=== PATIENT | male | born 1965 | race Caucasian/White ===

== ENCOUNTER 2022-09-18 10:28 | Emergency (ER) | payer OTHER, MEDICAID ==
[~2022-09-18] VITALS: Ht 167.6 cm; Wt 74.8 kg
[2022-09-18 10:31] VITALS: BP_SYST 140
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
--- NOTE | 2022-09-18 11:05 | NUR ---
Dr. Warren at bedside to see patient. Plan to place patient on hold.
--- NOTE | 2022-09-18 11:34 | NUR ---
Bao santos in [facility] - 09/18/22 at 1135 by SDEDTBC COVID AND INFLUENZA SWABS COLLECTED AND SENT TO LAB.
--- NOTE | 2022-09-18 11:35 | NUR ---
COVID AND MRSA SWABS COLLECTED AND SENT TO LAB.
[2022-09-18 11:38] LABS: BASOPHILS % (AUTO) 0.4 % (0.0-2.0); EOSINOPHILS # (AUTO) 0.2 K/uL (0.0-0.4); EOSINOPHILS % (AUTO) 2.9 % (0.0-4.0); HEMATOCRIT 51.5 % (36-54); HEMOGLOBIN 17.3 g/dL (14.0-18.0); LYMPHOCYTES # (AUTO) 1.3 K/uL (1.0-5.5); LYMPHOCYTES % (AUTO) 20.9 % (20.5-51.5); MEAN CORPUSCULAR HEMOGLOBIN 32 pg (27-31); MEAN CORPUSCULAR HGB CONC 34 % (32-36); MEAN CORPUSCULAR VOLUME 95 fL (79.0-98.0); MONOCYTES # (AUTO) 0.5 K/uL (0.0-1.0); MONOCYTES % (AUTO) 8.8 % (1.7-9.3); NEUTROPHILS # (AUTO) 4.1 K/uL (1.8-7.7); RED BLOOD CELL COUNT(AUTO) 5.41 MIL/uL (4.2-6.2); RED CELL DISTRIBUTION WIDTH 13.6 % (9.0-15.0); WHITE BLOOD COUNT (AUTO) 6.1 K/uL (4.8-10.8)
[2022-09-18 11:55] LABS: ALANINE AMINOTRANSFERASE 31 U/L (12-78); ALBUMIN 3.6 g/dL (3.4-4.8); ANION GAP 4 (5-15); ASPARTATE AMINOTRANSFERASE 30 U/L (10-37); CALCIUM 8.3 mg/dL (8.4-11.0); CHLORIDE 101 mmol/L (98-107); CREATININE 0.96 mg/dL (0.55-1.30); GFR AFRICAN AMERICAN 103 mL/min (>90); GLUCOSE 86 mg/dL (70-99); TOTAL BILIRUBIN 0.7 mg/dL (0.0-1.0); UREA NITROGEN, BLOOD 12 mg/dL (8-21)
[2022-09-18 12:06] LABS: ACETAMINOPHEN < 1 ug/mL (1-30); ALCOHOL, BLOOD < 3 mg/dL (<10)
[2022-09-18 12:07] LABS: BARBITURATE, URINE NEGATIVE (NEG <=200)
[2022-09-18 12:08] LABS: BENZODIAZEPINE, URINE NEGATIVE (NEG <=150); CANNABINOID, URINE NEGATIVE (NEG <=50); COCAINE, URINE NEGATIVE (NEG <=150); METHAMPHETAMINES SCREEN,URINE NEGATIVE (NEG <=500); OPIATE, URINE NEGATIVE (NEG <=100); PHENCYCLIDINE SCREEN,URINE NEGATIVE (NEG <=25); UR TRICYCLIC ANTIDEPRESSANTS NEGATIVE (NEG <=300); URINE AMPHETAMINE NEGATIVE (NEG <=500); URINE METHADONE NEGATIVE (NEG <=200); URINE OXYCODONE SCREEN NEGATIVE (NEG <=100); URINE PROPOXYPHENE SCREEN NEGATIVE (NEG <=300)
[2022-09-18 12:47] LABS: VALPROIC ACID 94 ug/mL (50-100)
[2022-09-18 13:11] LABS: PLATELET COUNT (AUTO) 95 K/uL (130-430)
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
[2022-09-18] MEDS ORDERED: LORazepam 2 MG/ML VIAL ONE (13:56)
[2022-09-18] MEDS ORDERED: HALOPERIDOL LACTATE 5 MG/ML VIAL ONE (13:56)
[2022-09-18] MEDS ORDERED: DIPHENHYDRAMINE INJ 50 MG/ML VIAL ONE (13:56)
[2022-09-18] MEDS ORDERED: DIPHENHYDRAMINE INJ 50 MG/ML VIAL IM ONE ×2 (14:15→14:30)
[2022-09-18] MEDS ORDERED: LORazepam 2 MG/ML VIAL IM ONE ×2 (14:15→14:30)
[2022-09-18] MEDS ORDERED: HALOPERIDOL LACTATE 5 MG/ML VIAL IM ONE ×2 (14:15→14:30)
--- NOTE | 2022-09-18 19:00 | NUR ---
RECEIVED VERBAL REPORT FROM OUTGOING NURSE, ELEAZAR MAY. RECEIVED PT AWAKE AND ALERT, NO SIGN AND SYMPTOMS OF DISCOMFORT NOTED. FOUR POINT SOFT RESTRAINTS NOTED. SUPERFICIAL LACERATIONS NOTED ON ABDOMEN, BILATERAL FOREARMS, AND BRIDGE OF NOSE. NO BLEEDING NOTED. A BUMP ON FOREHEAD NOTED. SAFETY PRECAUTIONS IN PLACE.
[2022-09-18] MEDS: DIVALPROEX SODIUM 250 MG TABLET(DEPAKOTE) PO SCH (19:33)
--- NOTE | 2022-09-18 19:48 | NUR ---
Report given to JONNIE Bettencourt for continuity of care. Patient in stable condition.
[2022-09-18] MEDS ORDERED: QUEtiapine FUMARATE 100 MG TABLET PO SCH (21:00)
[2022-09-18] MEDS ORDERED: QUEtiapine FUMARATE 100 MG TABLET ONE (21:17)
[2022-09-18] MEDS ORDERED: OLANZapine IntraMuscular 10 MG VIAL (FOR I.M. INJECTION ONLY) IM ONE (23:45)
[2022-09-19] MEDS: DIVALPROEX SODIUM 250 MG TABLET(DEPAKOTE) PO SCH ×3 (00:22→15:00)
[2022-09-19] MEDS ORDERED: LORazepam 2 MG/ML VIAL IM ONE (00:30)
[2022-09-19] MEDS ORDERED: LORazepam 2 MG/ML VIAL ONE ×2 (00:32→07:19)
[2022-09-19] MEDS ORDERED: LEVOTHYROXINE SODIUM 0.05 MG TABLET PO SCH (07:00)
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
[2022-09-19] MEDS ORDERED: KETAMINE HCL IN 0.9 % NACL 50 MG/5 ML SYRINGE ONE (07:04)
[2022-09-19] MEDS ORDERED: KETAMINE HCL 500 MG/10 ML VIAL IM ONE (07:15)
[2022-09-19] MEDS ORDERED: KETAMINE HCL IN 0.9 % NACL 50 MG/5 ML SYRINGE IV ONE (07:30)
[2022-09-19] MEDS ORDERED: LORazepam 2 MG/ML VIAL IVP ONE (07:30)
--- NOTE | 2022-09-19 07:35 | NUR ---
# 20 gauge angiocath placed to RAC. Use of asceptic technique. Opsite placed over site. Blood return noted. Flushed with 10 cc of normal saline. No evidence of infiltration noted. Patient tolerated well.
--- NOTE | 2022-09-19 07:47 | NUR ---
pt is currently rested and restrained.
--- NOTE | 2022-09-19 08:50 | NUR ---
Received call from [facility] [place], Dominique, requesting me to come down to discuss the psyche needs of the patient. The patient was seen by Dr. Hutchison yesterday and placed on a 5150 hold. He is currently on 4-point restrains due to his aggressive and violent behaviors to others. The patient is affiliated with the [facility]. A telephone call has been made out to his [facility] social work associate, Yoselin Wilkerson, and her diving supervisor, Sammy Hinojosa. I message was left for both requesting that they return my call. A clinical packet was sent to the following hospitals advising them that the pateint does have a [address] and an inpatient bed is needed: 1. [facility] 2. [facility] 3. Intake Department for [facility] 4. [facility] 5. [facility]. [facility] Follow up will continue to be made in order to place the patient in an appropriate placement.
[2022-09-19] MEDS ORDERED: FLUoxetine HCL 10 MG CAPSULE (PROzac) PO SCH (09:00)
[2022-09-19] MEDS ORDERED: clonazePAM 0.5 MG TABLET PO SCH (09:00)
[2022-09-19] MEDS ORDERED: PANTOPRAZOLE SODIUM 40 MG TAB PO SCH (09:00)
[2022-09-19] MEDS ORDERED: OMEPRAZOLE Non-Formulary 20 MG CAPSULE.DR PO SCH (09:00)
[2022-09-19] MEDS ORDERED: amLODIPine BESYLATE 5 MG TABLET PO SCH (09:00)
[2022-09-19] MEDS ORDERED: ARIPiprazole 5 MG TAB PO SCH (09:00)
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
--- NOTE | 2022-09-19 10:24 | NUR ---
Director of care home in to see patient 10 minutes ago. Pt is currenly resting in restraints.
--- NOTE | 2022-09-19 11:22 | NUR ---
ORDERED REGULAR DIET TRAY FROM DIETARY. ETA 40 MIN
--- NOTE | 2022-09-19 12:08 | NUR ---
PT EATING LUNCH AT THIS TIME
--- NOTE | 2022-09-19 12:20 | NUR ---
PT THREW UP HIS FOOD. MADE AWARE.
--- NOTE | 2022-09-19 12:25 | NUR ---
SOFT SHELLED RESTRAINTS PLACED BACK ONTO PT. PMS PRESENT ON EXTREMITY AFTER APPLICATION.
--- NOTE | 2022-09-19 12:35 | NUR ---
In to see patient this afternoon. He was in bed currently without the wrist restraints on as he just finished lunch. The patient was verbal and pleasant. F/U call made with the intake department who manages [facility], [facility], and [facility] They declined the patient due to him being on a hold. Their hospitals are voluntary only. Follow up made to [facility]. He was declined due to having aggressive behaviors and requiring a 1:1 sitter. Placement still needed. A message was left for the SW of the day tomorrow for further F/U. SS will continue to remain available for the patient.
--- NOTE | 2022-09-19 13:11 | NUR ---
PT CURRENTLY ASLEEP IN BED.
--- NOTE | 2022-09-19 13:28 | NUR ---
Pt resting quietly in bed, semi fowlers position.
--- NOTE | 2022-09-19 14:59 | NUR ---
PT RESTRAINED AND RESTING IN BED.
--- NOTE | 2022-09-19 16:40 | NUR ---
PT RESTRAINED AND RESTING IN BED. MD MADE AWARE THAT NEW ORDER NEEDED TO CONTINUE RESTRAINTS.
--- NOTE | 2022-09-19 16:45 | NUR ---
Pt ambulates to [facility] with steady gait..
--- NOTE | 2022-09-19 16:49 | NUR ---
MD Higgins re evaluated Pt. finding pt calm and responsive screened . MD Higgins stated will discontinue hold. Contacting gis database administrator Maria Dolores Ambrosio of facility to coordinate return home.
--- NOTE | 2022-09-19 18:10 | NUR ---
MD Stephens verified hold rescinded from consultation with MD Higgins.
--- NOTE | 2022-09-19 18:15 | NUR ---
Patient and caregiver MargaritaJoycelyn Daily given written and verbal discharge instructions and verbalizes understanding. ER MD discussed with patient the results and treatment provided. Patient in stable condition. ID arm band removed. Opportunity for questions provided and answered. Medication side effect fact sheet provided.
[2022-09-19 18:30] VITALS: BP_SYST 128
--- NOTE | 2022-09-19 19:00 | NUR ---
PATIENT WAS DISCHARGED & RELEASED TO THE CARE OF CIVIL CAD TECH SILVIO OF THE FACILITY WHERE HE PRESENTLY RESIDES. THIS WAS DONE FOLLOWING PROCESSING OF PAPERWORK BY DR GOMEZ TO END THE 5150 HOLD. PATIENT HAS BEEN COOPERATIVE DURING THE SHIFT. NEURO FUNCTION & CURCILATION DISTAL TO RESTRAINTS HAS BEEN CHECKED Q2 HOURS FOR SAFETY AND RELEASED AND MORE FREQUENTLY PRN.
== END 2022-09-19 18:30 | disposition home or self-care (01) ==
LOC: SED 10:28
DX: Z04.6 Encounter for general psychiatric examination, requested by authority (principal); R51.9 Headache, unspecified; R10.9 Unspecified abdominal pain; Z79.899 Other long term (current) drug therapy; Z20.822 Contact with and (suspected) exposure to COVID-19
CPT/HCPCS: 99285; 71045; 87426; 80307; 80053; 82550; 80164; 85025; 87081; 36415; 93005; 96372 ×2; 96374; G0482; J1200; J1630; J2060 ×2; G0480; G0481; J3490